=== PATIENT | male | born 1970 | race Caucasian/White ===

== ENCOUNTER 2017-12-15 05:55 | Observation (INO) ==
[2017-12-15] MEDS ORDERED: Aspirin 325 MG TABLET PO ONE (06:05)
[2017-12-15] MEDS ORDERED: Isovue-370 500 ML INFUS..BTL IV ONE (06:05)
--- NOTE | 2017-12-15 06:08 | Emergency Department Note ---
Disposition Clinical Impression: Tachycardia, Hypoxia Chest pain Qualifiers: Chest pain type: unspecified Qualified Code(s): R07.9 - Chest pain, unspecified Disposition: Still a Patient Condition: Good Referrals: Fabrice Yi DO [Primary Care Provider] - Forms: ED Satisfaction Letter Time of Disposition: 06:11 Chest Pain HPI - General Chief Complaint: ED Chest Pain Stated Complaint: cp Time Seen by Provider: 12/15/17 05:59 Source: patient, EMS Mode of arrival: EMS Limitations: no limitations Vital Signs Reviewed: Yes Nursing Notes Reviewed: Yes - History of Present Illness HPI Narrative: Patient is a 47-year-old male with past medical history of seasonal allergies, and chewing tobacco use. He presents today due to chest discomfort. He states that he started having substernal chest pain around 5 PM on the evening of 2017. He also had some associated shortness of breath and sweating. He states that he went to work, the pain worsened with exertion. No radiation of the pain anywhere else. Denies any fevers, nausea, vomiting, abdominal pain, productive cough, any history of COPD, asthma, previous [place] or stents. He states that the pain lessened when he sat down and rested. No other recent surgeries, recent long car rides, unilateral leg swelling, previous DVT or PE. No smoking history. Upon arrival, patient was satting 91% on room air and tachycardic in 115s. - Related Data Previous Rx's Medication Instructions Recorded Hydrocodone/Acetaminophen [[place] 1 - 2 tab PO Q6H PRN #15 tab 07/14/15 5-325 Tablet] Ibuprofen [Motrin] 600 mg PO Q8HR PRN #30 tab 07/14/15 Allergies Allergy/AdvReac Type Severity Reaction Status Date / Time No Known Allergies Allergy Unverified 01/20/15 14:27 All systems ED: reviewed and negative except as stated. Constitutional: Denies: fever Cardiovascular: Reports: chest pain Respiratory: Reports: dyspnea. Denies: cough, wheezes, hemoptysis, sputum production Gastrointestinal: Denies: abdominal pain, nausea, vomiting, diarrhea Musculoskeletal: Denies: back pain Neurological: Denies: headache, weakness, numbness, paresthesias Chest Pain PMH - Past Medical History Medical history: Reports: other Psychiatric history: Reports: depression - Social History Smoking Status: Never smoker Alcohol use: Reports: none Drug use: Reports: none Physical Exam - General Limitations: no limitations General appearance: alert, in no apparent distress - Head Head exam: atraumatic, normocephalic, normal inspection - Eye Eye exam: Present: normal appearance, PERRL, EOMI - ENT ENT exam: normal exam, normal oropharynx, mucous membranes moist - Neck Neck exam: Present: normal inspection, full ROM, trachea midline - Chest Chest inspection: Present: normal inspection, symmetric chest wall rise - Respiratory Respiratory exam: Present: normal lung sounds bilaterally - Cardiovascular Cardiovascular exam: Present: normal rhythm, tachycardia, normal heart sounds - Abdominal Exam Abdominal exam: Present: soft, Non-Tender. Absent: tenderness, distention, guarding, rebound, rigidity - Extremities Exam Extremities exam: Present: normal inspection, full ROM. Absent: tenderness, pedal edema, calf tenderness - Neurological Exam Neurological exam: Present: alert, oriented X3 - Psychiatric Psychiatric exam: Present: normal affect, normal mood - Skin Skin exam: Present: warm, dry, intact, normal color Course Course Narrative: Patient tachycardic in the 115 on presentation, satting 91% on room air with good waveform. Lungs were clear to auscultation, chest nontender to palpation. Abdomen soft and nontender. No unilateral leg swelling or calf tenderness. With tachycardia, chest discomfort, shortness of breath and near hypoxia on room air, there is concern for possible PE. Also concern for ACS. We will give the patient aspirin, perform CTA of the chest for further assessment of PE. Also perform basic blood work, troponin level. EKG shows sinus tachycardia, no acute ST elevation or depression. There is a T- wave inversion in lead 3. No previous EKG for comparison. 06:45 we will sign out to day team, Dr. Neumann and Dr. Moe for further care and disposition. Vital Signs Temperature 98.1 F 12/15/17 06:01 Pulse Rate 103 12/15/17 06:01 Respiratory Rate 16 12/15/17 06:01 Blood Pressure 143/103 12/15/17 06:01 O2 Sat by Pulse Oximetry 92 12/15/17 06:01 Temperature 98.1 F 12/15/17 06:01 Pulse Rate 100 12/15/17 06:30 Respiratory Rate 16 12/15/17 06:30 Blood Pressure 129/100 12/15/17 06:30 O2 Sat by Pulse Oximetry 93 12/15/17 06:30 Oxygen Delivery Oxygen Delivery Nasal Cannula Chest Pain - MDM Narrative Medical decision making narrative: Patient tachycardic in the 115 on presentation, satting 91% on room air with good waveform. Lungs were clear to auscultation, chest nontender to palpation. Abdomen soft and nontender. No unilateral leg swelling or calf tenderness. With tachycardia, chest discomfort, shortness of breath and near hypoxia on room air, there is concern for possible PE. Also concern for ACS. We will give the patient aspirin, perform CTA of the chest for further assessment of PE. Also perform basic blood work, troponin level. EKG shows sinus tachycardia, no acute ST elevation or depression. There is a T- wave inversion in lead 3. No previous EKG for comparison. 06:45 we will sign out to day team, Dr. Neumann and Dr. Moe for further care and disposition. - Medical Records Medical records reviewed: Yes I reviewed the patient's medical records. - Lab Data Lab results reviewed: Yes I reviewed the patient's lab results. Result diagrams: 12/15/17 06:02 12/15/17 06:02 Lab Results 12/15/17 12/15/17 12/15/17 Range/Units 06:02 06:02 06:22 WBC 9.5 (4.3-11.1) K/mcL RBC 5.31 (4.19-5.50) M/mcL Hgb 15.3 (12.9-16.9) g/dL Hct 43.7 (37.5-50.1) % MCV 82.3 L (83.0-100.0) fL MCH 28.8 (28.0-33.3) pg MCHC 35.0 (31.6-35.5) g/dL RDW 13.3 (11.5-14.5) % Plt Count 247 (140-400) K/mcL MPV 9.4 (9.4-12.4) fL Immature Gran % 0.4 (0-4) % Seg Neutrophils % 69.9 % Lymphocytes % 19.7 % Monocytes % 8.5 % Eosinophils % 1.0 % Basophils % 0.5 % Neutrophils # 6.6 (1.6-8.9) K/mcL Lymphocytes # 1.9 (0.6-4.6) K/mcL Monocytes # 0.8 (0.0-1.3) K/mcL Eosinophils # 0.1 (0.0-0.6) K/mcL Basophils # 0.1 (0.0-0.2) K/mcL Sodium 138 (136-145) mEq/L Potassium 3.6 (3.5-5.1) mEq/L Chloride 103 (98-107) mEq/L Carbon Dioxide 19 L (23-29) mEq/L BUN 19 (6-20) mg/dL Creatinine 1.45 H (0.70-1.30) mg/dL Est GFR ( Amer) > 60 (> 60) Est GFR (Non-Af Amer) 52 L (> 60) BUN/Creatinine Ratio 13 (6-26) Glucose 160 H (70-105) mg/dL Calculated Osmolality 292 (280-300) Calcium 9.5 (8.6-10.3) mg/dL Troponin I < 0.03 (< 0.04) ng/mL Specimen Rejected Volume - EKG Data EKG attestation: Yes I reviewed and interpreted this EKG. EKG results narrative: 12/15/2017 at 06:02. Sinus tachycardia. Rate 11. CO 177. QRS 100. QTC 390. Normal axis. no acute ST elevation or depression. There is a T-wave inversion in lead 3. No previous EKG for comparison. Heart Score - Score History: Moderately Suspicious EKG: Non Specific repolarisation Disturbance Age: 45-65 Risk Factors: 1-2 risk factors Troponin: Less than normal limit HEART Score Total: 4 S.B.A.R. - S.B.A.R. Situation: Demographics, MOA Background: Presenting Complaint, Relevant PMH, Meds, & Allergies Assessment: Vital Signs, Course and respsone to treatment, Exam Concerns, Patient/Family Expectation, Pertinant Lab Results, Outstanding Labs Recommendation: Barrier(s) to disposition, Recommendation based on pending studies, treatments, or consults S.B.A.R. Report Given to: Dr. Neumann, Dr. Moe
--- NOTE | 2017-12-15 06:17 | Emergency Department Note ---
Disposition Clinical Impression: Tachycardia, Hypoxia Chest pain Qualifiers: Chest pain type: unspecified Qualified Code(s): R07.9 - Chest pain, unspecified Disposition: Still a Patient Condition: Good Forms: ED Satisfaction Letter General Adult HPI - General Chief complaint: ED Chest Pain Stated complaint: cp Time Seen by Provider: 12/15/17 05:59 Source: patient, EMS Mode of arrival: EMS Limitations: no limitations - History of Present Illness Pain Scale: 7 - Related Data Previous Rx's Medication Instructions Recorded Hydrocodone/Acetaminophen [[place] 1 - 2 tab PO Q6H PRN #15 tab 07/14/15 5-325 Tablet] Ibuprofen [Motrin] 600 mg PO Q8HR PRN #30 tab 07/14/15 Allergies Allergy/AdvReac Type Severity Reaction Status Date / Time No Known Allergies Allergy Unverified 01/20/15 14:27 Constitutional: Denies: fever Cardiovascular: Reports: chest pain Respiratory: Reports: dyspnea. Denies: cough, wheezes, hemoptysis, sputum production Gastrointestinal: Denies: abdominal pain, nausea, vomiting, diarrhea Musculoskeletal: Denies: back pain Neurological: Denies: headache, weakness, numbness, paresthesias Past Medical History - Past Medical History Medical history: Reports: other Psychiatric history: Reports: depression - Social History Smoking Status: Never smoker Smokeless Tobacco Status: Yes Alcohol use: Reports: none Drug use: Reports: none Physical Exam - General Limitations: no limitations General appearance: alert, in no apparent distress Course - Reevaluation(s) Reevaluation #1: Attestation note I examined this patient and my medical decision-making was reviewed with the emergency medicine resident. I agree with the documented findings, disposition and treatment plan as described except to the extent set forth below. Patient seen with emergency medicine resident Dr. Didier Linares, Please see a copy of his note for details of the H&P, ED evaluation, management and disposition. I have independently evaluated the patient and confirmed appropriate portions of the history and physical exam. Briefly: 47-year-old male via EMS for chest pain shortness of breath or hypoxia. No prior history of lung conditions. Patient is tachycardic in the 130s he also has chest pain EKG shows sinus tachycardia but no acute ischemic changes. Patient with a CT angiogram to exclude pulmonary embolism patient will schedule troponin other screening labs. Patient will be getting an IV medications. Disposition pending. Time: 06:16 Vital Signs Temperature 98.1 F 12/15/17 06:01 Pulse Rate 103 12/15/17 06:01 Respiratory Rate 16 12/15/17 06:01 Blood Pressure 143/103 12/15/17 06:01 O2 Sat by Pulse Oximetry 92 12/15/17 06:01 Temperature 98.1 F 12/15/17 06:01 Pulse Rate 103 12/15/17 06:01 Respiratory Rate 16 12/15/17 06:01 Blood Pressure 143/103 12/15/17 06:01 O2 Sat by Pulse Oximetry 94 12/15/17 06:01 Oxygen Delivery Oxygen Delivery Nasal Cannula
[2017-12-15 06:20] LABS: Basophils # 0.1 K/mcL (0.0-0.2); Basophils % 0.5 %; Eosinophils # 0.1 K/mcL (0.0-0.6); Hematocrit 43.7 % (37.5-50.1); Hemoglobin 15.3 g/dL (12.9-16.9); Immature Granulocytes % 0.4 % (0-4); Lymphocytes # 1.9 K/mcL (0.6-4.6); Lymphocytes % 19.7 %; Mean Corpuscular Hemoglobin 28.8 pg (28.0-33.3); Mean Corpuscular Volume 82.3 fL (83.0-100.0); Mean Platelet Volume 9.4 fL (9.4-12.4); Monocytes # 0.8 K/mcL (0.0-1.3); Monocytes % 8.5 %; Neutrophils # 6.6 K/mcL (1.6-8.9); Platelet Count 247 K/mcL (140-400); Red Blood Count 5.31 M/mcL (4.19-5.50); Red Cell Distribution Width 13.3 % (11.5-14.5); Segmented Neutrophils % 69.9 %
[2017-12-15 06:36] LABS: Troponin I < 0.03 ng/mL (< 0.04)
[2017-12-15 06:39] LABS: BUN/Creatinine Ratio 13 (6-26); Blood Urea Nitrogen 19 mg/dL (6-20); Calcium 9.5 mg/dL (8.6-10.3); Carbon Dioxide 19 mEq/L (23-29); Chloride 103 mEq/L (98-107); Glucose 160 mg/dL (70-105); Osmolality,Calculated 292 (280-300); Potassium 3.6 mEq/L (3.5-5.1); Sodium 138 mEq/L (136-145); eGFR For Non-African Americans 52 (> 60)
[2017-12-15 06:54] LABS: INR 1.1; Prothrombin Time 12.1 Seconds (9.4-12.1)
[2017-12-15 06:57] LABS: Activated Partial Thrombo Time 31.4 Seconds (26.0-36.0)
--- NOTE | 2017-12-15 07:08 | Emergency Department Note ---
Disposition Clinical Impression: Tachycardia, Hypoxemia, DUNCAN (acute kidney injury) Chest pain Qualifiers: Chest pain type: unspecified Qualified Code(s): R07.9 - Chest pain, unspecified Disposition: Admitted As Inpatient Condition: Fair Referrals: Fabrice Yi DO [Primary Care Provider] - Forms: ED Satisfaction Letter Time of Disposition: 08:06 Chest Pain HPI - General Chief Complaint: ED Chest Pain Stated Complaint: cp Time Seen by Provider: 12/15/17 05:59 Source: patient, EMS Mode of arrival: EMS Limitations: no limitations Vital Signs Reviewed: Yes Nursing Notes Reviewed: Yes - History of Present Illness Severity scale (1-10): 1 - Related Data Previous Rx's Medication Instructions Recorded Hydrocodone/Acetaminophen [[place] 1 - 2 tab PO Q6H PRN #15 tab 07/14/15 5-325 Tablet] Ibuprofen [Motrin] 600 mg PO Q8HR PRN #30 tab 07/14/15 Allergies Allergy/AdvReac Type Severity Reaction Status Date / Time No Known Allergies Allergy Unverified 01/20/15 14:27 Constitutional: Denies: fever Cardiovascular: Reports: chest pain Respiratory: Reports: dyspnea. Denies: cough, wheezes, hemoptysis, sputum production Gastrointestinal: Denies: abdominal pain, nausea, vomiting, diarrhea Musculoskeletal: Denies: back pain Neurological: Denies: headache, weakness, numbness, paresthesias Chest Pain PMH - Past Medical History Medical history: Reports: other Psychiatric history: Reports: depression - Social History Smoking Status: Never smoker Alcohol use: Reports: none Drug use: Reports: none Physical Exam - General Limitations: no limitations General appearance: alert, in no apparent distress Course Course Narrative: I received a sign out about this patient from Dr. Linares and Dr. Varela. Briefly, patient is a 47-year-old male who started having chest pain worse with exertion around 4 5 PM yesterday evening. Upon his arrival, his oxygen saturation was 91% and was tachycardic. Cardiopulmonary workup was initiated. Lab work so far unremarkable. Chest x-ray unremarkable. He is pending a CTA of the chest. Due to his risk factors of smoking and the quality of his pain worse with exertion, we will likely admit for ACS workup if no pulmonary embolus was found. - Reevaluation(s) Reevaluation #1: CTA unremarkable. We will admit for chest pain, rule out ACS. I discussed with the hospitalist Dr. Montgomery who has accepted patient for admission. Time: 08:05 Vital Signs Temperature 98.1 F 12/15/17 06:01 Pulse Rate 103 12/15/17 06:01 Respiratory Rate 16 12/15/17 06:01 Blood Pressure 143/103 12/15/17 06:01 O2 Sat by Pulse Oximetry 92 12/15/17 06:01 Temperature 98.1 F 12/15/17 06:01 Pulse Rate 99 12/15/17 06:52 Respiratory Rate 16 12/15/17 06:52 Blood Pressure 129/93 12/15/17 06:52 O2 Sat by Pulse Oximetry 93 12/15/17 06:52 Oxygen Delivery Oxygen Delivery Nasal Cannula Chest Pain - Medical Records Medical records reviewed: Yes I reviewed the patient's medical records. - Lab Data Lab results reviewed: Yes I reviewed the patient's lab results. Result diagrams: 12/15/17 06:02 12/15/17 06:02 Lab Results 12/15/17 12/15/17 12/15/17 Range/Units 06:02 06:02 06:22 WBC 9.5 (4.3-11.1) K/mcL RBC 5.31 (4.19-5.50) M/mcL Hgb 15.3 (12.9-16.9) g/dL Hct 43.7 (37.5-50.1) % MCV 82.3 L (83.0-100.0) fL MCH 28.8 (28.0-33.3) pg MCHC 35.0 (31.6-35.5) g/dL RDW 13.3 (11.5-14.5) % Plt Count 247 (140-400) K/mcL MPV 9.4 (9.4-12.4) fL Immature Gran % 0.4 (0-4) % Seg Neutrophils % 69.9 % Lymphocytes % 19.7 % Monocytes % 8.5 % Eosinophils % 1.0 % Basophils % 0.5 % Neutrophils # 6.6 (1.6-8.9) K/mcL Lymphocytes # 1.9 (0.6-4.6) K/mcL Monocytes # 0.8 (0.0-1.3) K/mcL Eosinophils # 0.1 (0.0-0.6) K/mcL Basophils # 0.1 (0.0-0.2) K/mcL PT (9.4-12.1) Seconds INR APTT (26.0-36.0) Seconds Sodium 138 (136-145) mEq/L Potassium 3.6 (3.5-5.1) mEq/L Chloride 103 (98-107) mEq/L Carbon Dioxide 19 L (23-29) mEq/L BUN 19 (6-20) mg/dL Creatinine 1.45 H (0.70-1.30) mg/dL Est GFR ( Amer) > 60 (> 60) Est GFR (Non-Af Amer) 52 L (> 60) BUN/Creatinine Ratio 13 (6-26) Glucose 160 H (70-105) mg/dL Calculated Osmolality 292 (280-300) Calcium 9.5 (8.6-10.3) mg/dL Troponin I < 0.03 (< 0.04) ng/mL Specimen Rejected Volume 12/15/17 Range/Units 06:31 WBC (4.3-11.1) K/mcL RBC (4.19-5.50) M/mcL Hgb (12.9-16.9) g/dL Hct (37.5-50.1) % MCV (83.0-100.0) fL MCH (28.0-33.3) pg MCHC (31.6-35.5) g/dL RDW (11.5-14.5) % Plt Count (140-400) K/mcL MPV (9.4-12.4) fL Immature Gran % (0-4) % Seg Neutrophils % % Lymphocytes % % Monocytes % % Eosinophils % % Basophils % % Neutrophils # (1.6-8.9) K/mcL Lymphocytes # (0.6-4.6) K/mcL Monocytes # (0.0-1.3) K/mcL Eosinophils # (0.0-0.6) K/mcL Basophils # (0.0-0.2) K/mcL PT 12.1 (9.4-12.1) Seconds INR 1.1 APTT 31.4 (26.0-36.0) Seconds Sodium (136-145) mEq/L Potassium (3.5-5.1) mEq/L Chloride (98-107) mEq/L Carbon Dioxide (23-29) mEq/L BUN (6-20) mg/dL Creatinine (0.70-1.30) mg/dL Est GFR ( Amer) (> 60) Est GFR (Non-Af Amer) (> 60) BUN/Creatinine Ratio (6-26) Glucose (70-105) mg/dL Calculated Osmolality (280-300) Calcium (8.6-10.3) mg/dL Troponin I (< 0.04) ng/mL Specimen Rejected - Radiology Data Radiology results reviewed: Yes I reviewed the patient's radiology results. Chest X-Ray 12/15/17 05:59 IMPRESSION: Negative portable chest. D/ / Iron Finley MD / Iron Finley MD Interpreting Provider: Iron Finley MD Chest CTA 12/15/17 06:05 IMPRESSION: No evidence of pulmonary embolism or acute pulmonary abnormality. D/ / Armin Walker MD / Armin Walker MD Interpreting Provider: Armin Walker MD - EKG Data EKG attestation: Yes I reviewed and interpreted this EKG. EKG results narrative: EKG done at 602 shows sinus tachycardia with a rate of [address] elevation or depression noted. Normal axis. Inverted T waves noted in lead 3. No prior EKG for comparison. Heart Score - Score History: Moderately Suspicious EKG: Non Specific repolarisation Disturbance Age: 45-65 Risk Factors: 1-2 risk factors Troponin: Less than normal limit HEART Score Total: 4
--- NOTE | 2017-12-15 07:16 | Emergency Department Note ---
Disposition Clinical Impression: Tachycardia, Hypoxia Chest pain Qualifiers: Chest pain type: unspecified Qualified Code(s): R07.9 - Chest pain, unspecified Disposition: Still a Patient Condition: Good Referrals: Fabrice Yi DO [Primary Care Provider] - Forms: ED Satisfaction Letter General Adult HPI - General Chief complaint: ED Chest Pain Stated complaint: cp Time Seen by Provider: 12/15/17 05:59 Source: patient, EMS Mode of arrival: EMS Limitations: no limitations - History of Present Illness Pain Scale: 1 - Related Data Previous Rx's Medication Instructions Recorded Hydrocodone/Acetaminophen [[place] 1 - 2 tab PO Q6H PRN #15 tab 07/14/15 5-325 Tablet] Ibuprofen [Motrin] 600 mg PO Q8HR PRN #30 tab 07/14/15 Allergies Allergy/AdvReac Type Severity Reaction Status Date / Time No Known Allergies Allergy Unverified 01/20/15 14:27 Constitutional: Denies: fever Cardiovascular: Reports: chest pain Respiratory: Reports: dyspnea. Denies: cough, wheezes, hemoptysis, sputum production Gastrointestinal: Denies: abdominal pain, nausea, vomiting, diarrhea Musculoskeletal: Denies: back pain Neurological: Denies: headache, weakness, numbness, paresthesias Past Medical History - Past Medical History Medical history: Reports: other Psychiatric history: Reports: depression - Social History Smoking Status: Never smoker Smokeless Tobacco Status: Yes Alcohol use: Reports: none Drug use: Reports: none Physical Exam - General Limitations: no limitations General appearance: alert, in no apparent distress Course Vital Signs Temperature 98.1 F 12/15/17 06:01 Pulse Rate 103 12/15/17 06:01 Respiratory Rate 16 12/15/17 06:01 Blood Pressure 143/103 12/15/17 06:01 O2 Sat by Pulse Oximetry 92 12/15/17 06:01 Temperature 98.1 F 12/15/17 06:01 Pulse Rate 99 12/15/17 06:52 Respiratory Rate 16 12/15/17 06:52 Blood Pressure 129/93 12/15/17 06:52 O2 Sat by Pulse Oximetry 93 12/15/17 06:52 Oxygen Delivery Oxygen Delivery Nasal Cannula Medical Decision Making - Lab Data Result diagrams: 12/15/17 06:02 12/15/17 06:02 Lab Results 12/15/17 12/15/17 12/15/17 Range/Units 06:02 06:02 06:22 WBC 9.5 (4.3-11.1) K/mcL RBC 5.31 (4.19-5.50) M/mcL Hgb 15.3 (12.9-16.9) g/dL Hct 43.7 (37.5-50.1) % MCV 82.3 L (83.0-100.0) fL MCH 28.8 (28.0-33.3) pg MCHC 35.0 (31.6-35.5) g/dL RDW 13.3 (11.5-14.5) % Plt Count 247 (140-400) K/mcL MPV 9.4 (9.4-12.4) fL Immature Gran % 0.4 (0-4) % Seg Neutrophils % 69.9 % Lymphocytes % 19.7 % Monocytes % 8.5 % Eosinophils % 1.0 % Basophils % 0.5 % Neutrophils # 6.6 (1.6-8.9) K/mcL Lymphocytes # 1.9 (0.6-4.6) K/mcL Monocytes # 0.8 (0.0-1.3) K/mcL Eosinophils # 0.1 (0.0-0.6) K/mcL Basophils # 0.1 (0.0-0.2) K/mcL PT (9.4-12.1) Seconds INR APTT (26.0-36.0) Seconds Sodium 138 (136-145) mEq/L Potassium 3.6 (3.5-5.1) mEq/L Chloride 103 (98-107) mEq/L Carbon Dioxide 19 L (23-29) mEq/L BUN 19 (6-20) mg/dL Creatinine 1.45 H (0.70-1.30) mg/dL Est GFR ( Amer) > 60 (> 60) Est GFR (Non-Af Amer) 52 L (> 60) BUN/Creatinine Ratio 13 (6-26) Glucose 160 H (70-105) mg/dL Calculated Osmolality 292 (280-300) Calcium 9.5 (8.6-10.3) mg/dL Troponin I < 0.03 (< 0.04) ng/mL Specimen Rejected Volume 12/15/17 Range/Units 06:31 WBC (4.3-11.1) K/mcL RBC (4.19-5.50) M/mcL Hgb (12.9-16.9) g/dL Hct (37.5-50.1) % MCV (83.0-100.0) fL MCH (28.0-33.3) pg MCHC (31.6-35.5) g/dL RDW (11.5-14.5) % Plt Count (140-400) K/mcL MPV (9.4-12.4) fL Immature Gran % (0-4) % Seg Neutrophils % % Lymphocytes % % Monocytes % % Eosinophils % % Basophils % % Neutrophils # (1.6-8.9) K/mcL Lymphocytes # (0.6-4.6) K/mcL Monocytes # (0.0-1.3) K/mcL Eosinophils # (0.0-0.6) K/mcL Basophils # (0.0-0.2) K/mcL PT 12.1 (9.4-12.1) Seconds INR 1.1 APTT 31.4 (26.0-36.0) Seconds Sodium (136-145) mEq/L Potassium (3.5-5.1) mEq/L Chloride (98-107) mEq/L Carbon Dioxide (23-29) mEq/L BUN (6-20) mg/dL Creatinine (0.70-1.30) mg/dL Est GFR ( Amer) (> 60) Est GFR (Non-Af Amer) (> 60) BUN/Creatinine Ratio (6-26) Glucose (70-105) mg/dL Calculated Osmolality (280-300) Calcium (8.6-10.3) mg/dL Troponin I (< 0.04) ng/mL Specimen Rejected Attestation Statement - Attestation Attestation: Care assumed from Dr. Varela at 7 AM pending CTA chest. Patient presented with chest discomfort and tachycardia. He appears in no acute distress at the time of evaluation. EKG and labs reviewed by me. We are anticipating admitting this patient upon completion of the pending studies
[2017-12-15] MEDS ORDERED: Naloxone 0.4 MG/ML INJ IVP PRN (08:03)
[2017-12-15] MEDS ORDERED: *HR* HYDROcodone/Acet 5/325 mg TABLET PO PRN (08:03)
[2017-12-15] MEDS ORDERED: Acetaminophen 325 MG TABLET PO PRN (08:03)
[2017-12-15] MEDS ORDERED: Ondansetron 4 MG/2 ML VIAL IVP PRN (08:03)
[2017-12-15] MEDS ORDERED: 0.9 % Sodium Chloride 1,000 ML IVC SCH (08:15)
[2017-12-15] MEDS ORDERED: Nitroglycerin 0.4 MG TAB.SUBL SL PRN (08:16)
[2017-12-15 08:44] LABS: Amphetamine Screen,Urine Negative ng/mL (Cutoff=1000); Barbiturate Screen,Urine Negative ng/mL (Cutoff=200); Benzodiazepines Screen,Urine Negative ng/mL (Cutoff=200); Cannabinoid Screen,Urine Negative ng/mL (Cutoff = 50); Cocaine Screen,Urine Negative ng/mL (Cutoff= 300); Opiate Screen,Urine Negative ng/mL (Cutoff=300); Phencyclidine Screen,Urine Negative ng/mL (Cutoff=25)
[2017-12-15] MEDS: Aspirin Enteric Coated 81 MG Tablet PO SCH (11:19)
--- NOTE | 2017-12-15 16:57 | Internal Med History&Physical ---
Date of Encounter: 12/15/17 Time of Encounter: 13:00 Internal Medicine - H&P: HPI Chief complaint: Chest pain Admitted From: Emergency Dept Plans for Post Hospital Care: Home History of present illness: Mr. Hull is a 47 year old male with known past medical history of anxiety and Gerd patient presented emergency room complaining about sub sternal chest pain started since yesterday morning, 6/10 in severity, more like tightness / sharp pain, non radiating, lasted for 24 hrs. He also mentioned some intermittent chest pain from last 3-4 weeks. Denied any pervious cardiac work up. His mother had CAD with stents in her 60's. Past Med Surg Social Fam HX - Past Medical History Medical history: other Additional medical history: cluster headaches Psychiatric history: depression - Past Surgical History Additional surgical history: wrist - Social History Smoking Status: Never smoker Smokeless Tobacco Status: Yes Alcohol use: none Drug use: none - Family History Mother Hx Family Cardiac Disorders: Yes ([place]) Internal Medicine - H&P: Meds Omeprazole [PriLOSEC] 40 mg PO DAILY 12/15/17 [History] PARoxetine HCl [Paroxetine HCl] 20 mg PO HS 12/15/17 [History] 3 Allergy/AdvReac Type Severity Reaction Status Date / Time No Known Allergies Allergy Verified 12/15/17 08:19 All Systems PM: A 10-system review of systems was performed and is negative for pertinent findings except as documented above in the HPI. Review of systems: All the systems are reviewed everything is benign except the systems and symptoms I mentioned in the history of present illness - Constitutional Vitals: Temp Pulse Resp BP Pulse Ox 97.7 F 76 16 143/76 95 12/15/17 14:52 12/15/17 14:52 12/15/17 14:52 12/15/17 14:52 12/15/17 14:52 General appearance: Present: A&O X 3, no acute distress, answers questions appropriately - Head Head exam: Present: atraumatic, normal inspection - Neck Neck exam general surgery: Present: supple - Respiratory Respiratory exam: Present: decreased breath sounds. Absent: rales, respiratory distress, rhonchi, wheezes - Cardiovascular Cardiovascular exam: Present: RRR, +S1, +S2. Absent: tachycardia - GI/Abdominal GI/Abdominal exam: Present: normal bowel sounds, soft. Absent: rebound, rigid, tenderness - Extremities Exam Extremities exam: Absent: calf tenderness, pedal edema, tenderness - Back Exam Back exam: Absent: CVA tenderness (L), CVA tenderness (R) - Neurological Exam Neurological exam: Present: alert, oriented X3 - Psychiatric Psychiatric exam: Present: normal affect, normal mood - Skin Skin exam: Absent: rash Internal Med - H&P Results - Labs CBC & Chem 7: 12/15/17 06:02 12/15/17 06:02 Labs: Cardiac Enzymes 12/15/17 Range/Units 12:28 Troponin I < 0.03 (< 0.04) ng/mL - Assessment and plan (1) Chest pain Current Visit: Yes Status: Acute Assessment and plan: Will admit the pt into Tele for observation Will place pt on trim attacher check serial troponin so far negative troponin EKG reviewed showed sinus tachycardia, NO ST changes. Does have T wave inversion in lead 3 will start pt on ASA and Nitro PRN for pain Will check FLP in AM Will get stress test in AM since pt is high risk for ACS Qualifiers: Chest pain type: unspecified Qualified Code(s): R07.9 - Chest pain, unspecified (2) DUNCAN (acute kidney injury) Current Visit: Yes Status: Acute Assessment and plan: Due to dehydration also concerned for CKD-2 started on IV hydration check BMP in AM (3) Tachycardia Current Visit: Yes Status: Acute Assessment and plan: sinus tachycardia could be due to dehydration on IVF also will check UDS (4) Anxiety Current Visit: Yes Status: Acute Assessment and plan: resumed home medications - Time Spent With Patient Total time spent is greater than 50% in coordination of care (as documented) at patient's floor/unit and/or counseling patient:
--- NOTE | 2017-12-15 17:39 | Electrocardiograph Report ---
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
[2017-12-16 04:00] LABS: BUN/Creatinine Ratio 18 (6-26); Blood Urea Nitrogen 18 mg/dL (6-20); Calcium 8.9 mg/dL (8.6-10.3); Carbon Dioxide 26 mEq/L (23-29); Chloride 104 mEq/L (98-107); Glucose 122 mg/dL (70-105); Osmolality,Calculated 289 (280-300); Potassium 3.3 mEq/L (3.5-5.1); Sodium 138 mEq/L (136-145); eGFR For Non-African Americans > 60 (> 60)
[2017-12-16] MEDS: Aspirin Enteric Coated 81 MG Tablet PO SCH (09:30)
--- NOTE | 2017-12-16 11:41 | Discharge Summary ---
Orders not resulted at time of discharge: Pending orders 12/15/17 16:54 NM yunior perf SPECT multi [NM] Routine Date of Encounter: 12/16/17 Time of Encounter: 11:39 - Discharge Diagnosis (1) Chest pain Priority: Primary Status: Acute Qualifiers: Chest pain type: unspecified Qualified Code(s): R07.9 - Chest pain, unspecified (2) DUNCAN (acute kidney injury) Priority: Primary Status: Acute (3) Tachycardia Priority: Primary Status: Acute (4) Anxiety Priority: Secondary Status: Acute Hospital course: Mr. Hull is a 47 year old male with known past medical history of anxiety and Gerd patient presented emergency room complaining about sub sternal chest pain started since yesterday morning, 10/15 in severity, more like tightness / sharp pain, non radiating, lasted for 24 hrs. He also mentioned some intermittent chest pain from last 3-4 weeks. Denied any pervious cardiac work up. His mother had CAD with stents in her 60's. Pt was admitted in the hospital and placed him on cardiac montior, checked serial troponin which were negative. He had exercise nuclear stress test today which came back as negative for ischemia. He did have DUNCAN due to dehydration which resolved with IVF. So will d/c him home in stable condition today. - Time Spent with Patient Total time spent providing and/or coordinating discharge services: - Discharge Medications Prescriptions: Aspirin Enteric Coated [Aspirin EC] 81 mg PO DAILY #30 tablet.dr Benites Medications: Omeprazole [PriLOSEC] 40 mg PO DAILY 12/15/17 [History] PARoxetine HCl [Paroxetine HCl] 20 mg PO HS 12/15/17 [History] Aspirin Enteric Coated [Aspirin EC] 81 mg PO DAILY #30 tablet. 12/16/17 [Rx] Allergies/Adverse Reactions: 3 Allergy/AdvReac Type Severity Reaction Status Date / Time No Known Allergies Allergy Verified 12/15/17 08:19 Date of admission: 12/15/17 08:25 Primary care physician: Fabrice Yi DO - Constitutional Vitals: Temp Pulse Resp BP Pulse Ox 97.8 F 78 16 131/80 96 12/16/17 06:55 12/16/17 06:55 12/16/17 06:55 12/16/17 06:55 12/16/17 06:55 General appearance: Present: A&O X 3, no acute distress, answers questions appropriately - Head Head exam: Present: atraumatic, normal inspection - Neck Neck exam general surgery: Present: supple - Respiratory Respiratory exam: Present: decreased breath sounds. Absent: rales, respiratory distress, rhonchi, wheezes - Cardiovascular Cardiovascular exam: Present: RRR, +S1, +S2. Absent: tachycardia - Extremities Exam Extremities exam: Absent: calf tenderness, pedal edema, tenderness - Back Exam Back exam: Absent: CVA tenderness (L), CVA tenderness (R) - Psychiatric Psychiatric exam: Present: normal affect, normal mood - Patient Status Disposition: Home, Self-Care Condition: Good Overall status at discharge: patient is back to baseline - Discharge Instructions Follow Up With: Fabrice Yi DO [Primary Care Provider] - - Diet and Activity Activity: increase activity as tolerated Diet: low salt diet
[2017-12-16 11:51] VITALS: BP 129/81
== END 2017-12-16 12:45 | disposition home or self-care (01) ==
LOC: 3BNU 05:55 → EMEROO 05:55 → 3BNU 09:06
PROVIDERS: ADMIT Family Medicine; ATTEND Family Medicine